=== PATIENT | male | born 1995 | race Caucasian/White ===

== ENCOUNTER 2024-08-12 14:22 | Emergency (ER) | payer SELFPAY ==
[~2024-08-12] VITALS: Ht 167.6 cm; Wt 88.9 kg
== END 2024-08-12 15:25 | disposition left against medical advice (07) ==
LOC: ED 14:22
DX: S30.851A Superficial foreign body of abdominal wall, initial encounter (principal); K92.0 Hematemesis; Z53.29 Procedure and treatment not carried out because of patient's decision for other reasons; W44.8XXA Other foreign body entering into or through a natural orifice, initial encounter; Y93.89 Activity, other specified; Y92.89 Other specified places as the place of occurrence of the external cause; Y99.8 Other external cause status